=== PATIENT | female | born 1965 | race Caucasian/White ===

== ENCOUNTER 2017-06-23 14:53 | Inpatient (IN) | payer MEDICAID ==
[~2017-06-23] VITALS: Ht 160 cm; Wt 111.0 kg
[2017-06-23 15:36] LABS: BASOPHILS % (AUTO) 0.3 % (0-1); EOSINOPHILS % (AUTO) 0.1 % (0-6); HEMATOCRIT 41.9 % (35.0-45.0); HEMOGLOBIN 14.1 g/dl (12.0-16.0); LYMPHOCYTES # (AUTO) 1.5 X10'3 (1.1-4.8); LYMPHOCYTES % (AUTO) 19.5 % (21-51); MEAN CORPUSCULAR HEMOGLOBIN 27.7 PG (27.0-31.0); MEAN CORPUSCULAR HGB CONC 33.7 % (33.0-36.5); MEAN CORPUSCULAR VOLUME 82.3 FL (78-98); MEAN PLATELET VOLUME 9.4 FL (7.4-10.4); MONOCYTES # (AUTO) 0.9 X10'3 (0-0.9); MONOCYTES % (AUTO) 11.9 % (2-12); NEUTROPHILS # (AUTO) 5.2 X10'3 (1.8-7.7); NEUTROPHILS % (AUTO) 68.2 % (42-75); PLATELET COUNT 186 X10'3 (140-440); RED BLOOD COUNT 5.09 X10'6 (4.20-5.60); RED CELL DISTRIBUTION WIDTH 14.7 % (11.5-14.5); WHITE BLOOD COUNT 7.6 X10'3 (4.5-11.0)
[2017-06-23 15:46] LABS: PARTIAL THROMBOPLASTIN TIME 30 SECONDS (22-32); PROTHROMBIN TIME 10.5 SECONDS (9.0-12.0)
[2017-06-23 15:51] LABS: ALANINE AMINOTRANSFERASE 35 U/L (12-78); ALBUMIN 3.9 G/DL (3.4-5.0); ALKALINE PHOSPHATASE 76 IU/L (46-116); ANION GAP 18 (8-16); ASPARTATE AMINO TRANSFERASE 30 U/L (10-37); BILIRUBIN,TOTAL 0.3 MG/DL (0.1-1.0); BLOOD UREA NITROGEN 13 MG/DL (7-18); BUN/CREATININE RATIO 12.9 (6.6-38.0); CALCIUM 8.9 MG/DL (8.5-10.1); CHLORIDE 102 MMOL/L (99-107); CREATININE 1.01 MG/DL (0.40-0.90); GLUCOSE 176 MG/DL (70-104); POTASSIUM 3.2 MMOL/L (3.5-5.1); SODIUM 142 MMOL/L (135-145); TOTAL PROTEIN 7.8 G/DL (6.4-8.2); eGFR 57 ML/MIN
[2017-06-23] MEDS ORDERED: levoFLOXACIN-Levaquin 500mg/D5 100 ML IV ONE (16:25)
[2017-06-23] MEDS ORDERED: ipratropium/albuterol 3ml nebule NEB ONE (16:25)
[2017-06-23] MEDS: potassium 10mEq/100ml NS w/LIDOcaine (10mg/bag) IV SCH ×2 (17:47→18:35)
[2017-06-23] MEDS ORDERED: methylPREDNISolone sod succ 125mg/2ml vial IV ONE ×2 (18:05→18:30)
[2017-06-23] MEDS ORDERED: diphenhydrAMINE 50 mg/ml inj IV ONE (18:05)
[2017-06-23] MEDS ORDERED: morphine 4 MG/ML inj SYRINge IV PRN (18:30)
[2017-06-23] MEDS ORDERED: magnesium hydroxide 30ml (MOM) UD suspension PO PRN (18:30)
[2017-06-23] MEDS ORDERED: potassium Cl 20 mEq SR tablet PO PRN ×2 (18:30)
[2017-06-23] MEDS ORDERED: magnesium Cl slow-release 64mg tablet PO PRN (18:30)
[2017-06-23] MEDS ORDERED: mag hydrox/Alum hydrox/simeth 30ml oral suspension PO PRN (18:30)
[2017-06-23] MEDS ORDERED: potassium Cl 40MEQ/NS 500ml 500 ML IV PRN ×2 (18:30)
[2017-06-23] MEDS ORDERED: magnesium 2GM in 50ml NS 50 ML IV PRN (18:30)
[2017-06-23] MEDS ORDERED: magnesium 4gm in 100ml NS 100 ML IV PRN (18:30)
[2017-06-23] MEDS ORDERED: HYDROcodone/acetaminophen 10/325mg tab PO PRN (18:30)
[2017-06-23] MEDS ORDERED: HYDROcodone/acetaminophen 5mg/325mg tablet PO PRN (18:30)
[2017-06-23] MEDS ORDERED: acetaminophen 325mg tablet PO PRN (18:30)
[2017-06-23] MEDS ORDERED: ondansetron/PF 4mg/2ml inj IV PRN (18:30)
[2017-06-23] MEDS ORDERED: ipratropium/albuterol 3ml nebule NEB PRN (18:35)
[2017-06-23] MEDS ORDERED: potassium Cl 20 mEq SR tablet PO ONE (18:55)
[2017-06-23] MEDS ORDERED: METF500T PO (19:10)
[2017-06-23] MEDS ORDERED: GEMF600T3 PO (19:10)
[2017-06-23] MEDS ORDERED: BENA40TA2 PO (19:10)
[2017-06-23] MEDS: K and/or MAG REPLACEMENT MC SCH (19:17)
[2017-06-23] MEDS: CefTRIAXone/D5W-Rocephin 1gm 50 ML IV SCH (19:25)
[2017-06-23] MEDS: normal saline 1000ml 1,000 ML IV SCH (19:25)
[2017-06-23] MEDS ORDERED: heparin, porcine 5000 units/ml vial SQ SCH (20:00)
[2017-06-23] MEDS ORDERED: methylPREDNISolone sod succ 125mg/2ml vial IV SCH (21:00)
[2017-06-23] MEDS ORDERED: dextrose 50%-water 50ml dispensing syringe IV PRN ×2 (22:20)
[2017-06-23] MEDS ORDERED: dextrose ORAL solution 15 GM/59 ML bottle PO PRN ×2 (22:20)
[2017-06-23] MEDS ORDERED: glucagon, human recombinant 1mg kit SUBCUT PRN (22:20)
[2017-06-23] MEDS ORDERED: MESSAGE TO PHARMACY PO ONE (22:20)
[2017-06-23] MEDS: insulin glargine (Lantus) pen - multi-dose SQ SCH (22:34)
[2017-06-24] MEDS: normal saline 1000ml 1,000 ML IV SCH (04:27)
[2017-06-24 06:08] LABS: BASOPHILS % (AUTO) 0.1 % (0-1); EOSINOPHILS % (AUTO) 0 % (0-6); HEMATOCRIT 37.1 % (35.0-45.0); HEMOGLOBIN 12.7 g/dl (12.0-16.0); MEAN CORPUSCULAR HGB CONC 34.2 % (33.0-36.5); MEAN CORPUSCULAR VOLUME 81.8 FL (78-98); MEAN PLATELET VOLUME 9.5 FL (7.4-10.4); MONOCYTES # (AUTO) 0.3 X10'3 (0-0.9); MONOCYTES % (AUTO) 7.3 % (2-12); NEUTROPHILS # (AUTO) 2.6 X10'3 (1.8-7.7); NEUTROPHILS % (AUTO) 66.6 % (42-75); PLATELET COUNT 160 X10'3 (140-440); RED BLOOD COUNT 4.53 X10'6 (4.20-5.60); RED CELL DISTRIBUTION WIDTH 14.6 % (11.5-14.5); WHITE BLOOD COUNT 3.9 X10'3 (4.5-11.0)
[2017-06-24 06:17] LABS: PROTHROMBIN TIME 10.5 SECONDS (9.0-12.0)
[2017-06-24 06:28] LABS: ALBUMIN 3.4 G/DL (3.4-5.0); ANION GAP 14 (8-16); BLOOD UREA NITROGEN 16 MG/DL (7-18); BUN/CREATININE RATIO 15.8 (6.6-38.0); CALCIUM 8.5 MG/DL (8.5-10.1); CHLORIDE 105 MMOL/L (99-107); CREATININE 1.01 MG/DL (0.40-0.90); GLUCOSE 332 MG/DL (70-104); MAGNESIUM 1.6 MG/DL (1.5-2.4); POTASSIUM 4.1 MMOL/L (3.5-5.1); SODIUM 142 MMOL/L (135-145); TOTAL CARBON DIOXIDE 23.2 MMOL/L (24-32); eGFR 57 ML/MIN
[2017-06-24 06:31] LABS: HEMOGLOBIN A1C 8.5 % (4.5-6.2)
[2017-06-24 07:00] VITALS: BP 125/71
[2017-06-24] MEDS ORDERED: azithromycin/NS 500mg/250ml 250 ML IV SCH (08:00)
[2017-06-24] MEDS: K and/or MAG REPLACEMENT MC SCH (08:00)
[2017-06-24] MEDS: insulin Lispro (HumaLOG) vial - multi-dose SQ SCH ×4 (08:43→21:13)
[2017-06-24] MEDS: pantoprazole 40 MG vial IV SCH (08:47)
[2017-06-24] MEDS: CefTRIAXone/D5W-Rocephin 1gm 50 ML IV SCH (08:48)
[2017-06-24] MEDS: heparin, porcine 5000 units/ml vial SQ SCH ×2 (08:51→19:03)
[2017-06-24 11:00] VITALS: BP 153/62
[2017-06-24 18:00] VITALS: BP 136/69
[2017-06-24] MEDS: lactobacillus rhamnosus 10,000 MMU CELLS/CAPSULE PO SCH (19:03)
[2017-06-24] MEDS: methylPREDNISolone sod succ 125mg/2ml vial IV SCH (19:03)
[2017-06-24] MEDS: insulin glargine (Lantus) pen - multi-dose SQ SCH (21:14)
[2017-06-25] VITALS: BP 147/76
[2017-06-25 05:30] LABS: BASOPHILS % (AUTO) 0.3 % (0-1); EOSINOPHILS # (AUTO) 0.1 X10'3 (0-0.9); EOSINOPHILS % (AUTO) 0.7 % (0-6); HEMATOCRIT 37.1 % (35.0-45.0); HEMOGLOBIN 12.6 g/dl (12.0-16.0); LYMPHOCYTES # (AUTO) 1.6 X10'3 (1.1-4.8); LYMPHOCYTES % (AUTO) 22.6 % (21-51); MEAN CORPUSCULAR HEMOGLOBIN 28.1 PG (27.0-31.0); MEAN CORPUSCULAR HGB CONC 33.9 % (33.0-36.5); MEAN CORPUSCULAR VOLUME 82.7 FL (78-98); MEAN PLATELET VOLUME 9.5 FL (7.4-10.4); MONOCYTES # (AUTO) 0.6 X10'3 (0-0.9); MONOCYTES % (AUTO) 7.8 % (2-12); NEUTROPHILS % (AUTO) 68.6 % (42-75); PLATELET COUNT 200 X10'3 (140-440); RED BLOOD COUNT 4.49 X10'6 (4.20-5.60); RED CELL DISTRIBUTION WIDTH 14.3 % (11.5-14.5); WHITE BLOOD COUNT 7.3 X10'3 (4.5-11.0)
[2017-06-25 05:48] LABS: ALBUMIN 3.3 G/DL (3.4-5.0); ANION GAP 11 (8-16); BLOOD UREA NITROGEN 20 MG/DL (7-18); BUN/CREATININE RATIO 23.8 (6.6-38.0); CALCIUM 9.1 MG/DL (8.5-10.1); CHLORIDE 107 MMOL/L (99-107); CREATININE 0.84 MG/DL (0.40-0.90); GLUCOSE 215 MG/DL (70-104); MAGNESIUM 2.1 MG/DL (1.5-2.4); POTASSIUM 4.6 MMOL/L (3.5-5.1); SODIUM 144 MMOL/L (135-145); eGFR 71 ML/MIN
[2017-06-25 07:00] VITALS: BP 159/79
[2017-06-25] MEDS: methylPREDNISolone sod succ 125mg/2ml vial IV SCH (07:27)
[2017-06-25] MEDS: pantoprazole 40 MG vial IV SCH (07:28)
[2017-06-25] MEDS: heparin, porcine 5000 units/ml vial SQ SCH (07:30)
[2017-06-25] MEDS: CefTRIAXone/D5W-Rocephin 1gm 50 ML IV SCH (07:31)
[2017-06-25] MEDS: lactobacillus rhamnosus 10,000 MMU CELLS/CAPSULE PO SCH (07:35)
[2017-06-25] MEDS: K and/or MAG REPLACEMENT MC SCH (07:36)
[2017-06-25] MEDS ORDERED: ROBDML PO (08:45)
[2017-06-25] MEDS ORDERED: LEVO500T89 PO (09:04)
[2017-06-25 11:17] VITALS: BP 152/77
== END 2017-06-25 12:07 | disposition home or self-care (01) | DRG 139 ==
LOC: ER 14:53 → ED HOLD 18:27 → EDBEDREQTM 20:59 → EDBEDREQ 20:59 → MED 3N 21:30
PROVIDERS: ADMIT Internal Medicine; ATTEND Internal Medicine
DX: J18.9 Pneumonia, unspecified organism (principal); Z68.41 Body mass index [BMI] 40.0-44.9, adult; I10 Essential (primary) hypertension; E11.9 Type 2 diabetes mellitus without complications; E87.6 Hypokalemia; Z88.1 Allergy status to other antibiotic agents; Z88.5 Allergy status to narcotic agent; Z88.0 Allergy status to penicillin; Z88.2 Allergy status to sulfonamides; Z79.899 Other long term (current) drug therapy
CPT/HCPCS: 36415; 71045; 80048; 80053; 82948; 83036; 83605; 83735; 83880; 84484; 85025; 85610; 85730; 87040; 87070; 87502; 87503; 93005; 94640; 94667; 94668; 94760; 96365; 97116; 97530; 99285; A6258; C9113; J0696; J1200; J1644; J1815; J1956; J2930; J3480; J7030

== ENCOUNTER 2019-07-12 23:10 | Emergency (ER) | payer MEDICAID ==
[~2019-07-12] VITALS: Ht 160 cm; Wt 115.9 kg
[~2019-07-12 23:10] MED LIST: BENA40TA73 PO; GEMF600T89 PO; LEVO500T89 PO; METF500T PO; ROBDML PO
[2019-07-12] MEDS ORDERED: LIDOcaine 5% patch TP SCH (23:45)
--- NOTE | 2019-07-13 00:01 | NUR ---
PT STATES SHE WILL TRY LIDOCAIN PATCH ON FOOT. DR. DAIGLE OK WITH THAT. PT INSTRUCTED TO TAKE LIDOCAINE PATCH OFF IF SHE GETS REDNESS OR ITCHINESS AND WASH HER FOOT WITH SOAP AND WATER. PT ISNTRUCTED TO COME BACK TOT HE ED IF SHE DEVELOPS ANY WORSENING SYMPTOMS. PT VERBALIZES UNDERSTANDING OF ALL INSTRUCTIONS
[2019-07-13 00:02] VITALS: BP 143/73
== END 2019-07-13 00:04 | disposition home or self-care (01) ==
LOC: ER 23:10
DX: T63.2X1A Toxic effect of venom of scorpion, accidental (unintentional), initial encounter (principal); E78.00 Pure hypercholesterolemia, unspecified; I10 Essential (primary) hypertension; E11.9 Type 2 diabetes mellitus without complications; Z88.0 Allergy status to penicillin; Z88.2 Allergy status to sulfonamides; Z88.5 Allergy status to narcotic agent; Z88.8 Allergy status to other drugs, medicaments and biological substances; Z79.899 Other long term (current) drug therapy; Y92.89 Other specified places as the place of occurrence of the external cause
CPT/HCPCS: 99282; 99283

== ENCOUNTER 2021-03-24 08:06 | Inpatient (IN) | payer MEDICAID ==
[2021-03-17 14:48] LABS: BASOPHILS # (AUTO) 0.1 X10'3 (0-0.2); BASOPHILS % (AUTO) 0.5 % (0-1); EOSINOPHILS # (AUTO) 0.3 X10'3 (0-0.9); EOSINOPHILS % (AUTO) 2.2 % (0-6); LYMPHOCYTES # (AUTO) 2.5 X10'3 (1.1-4.8); LYMPHOCYTES % (AUTO) 19.1 % (21-51); MEAN CORPUSCULAR HEMOGLOBIN 25.1 PG (27.0-31.0); MEAN CORPUSCULAR HGB CONC 32.2 g/dL (33.0-36.5); MEAN CORPUSCULAR VOLUME 77.9 FL (78-98); MEAN PLATELET VOLUME 10.1 FL (7.4-10.4); MONOCYTES # (AUTO) 0.8 X10'3 (0-0.9); MONOCYTES % (AUTO) 6.4 % (2-12); NEUTROPHILS # (AUTO) 9.5 X10'3 (1.8-7.7); NEUTROPHILS % (AUTO) 71.8 % (42-75); PRE OP HEMATOCRIT 41.2 % (35.0-45.0); PRE OP HEMOGLOBIN 13.3 g/dL (12.0-16.0); PRE OP PLATELET COUNT 160 X10'3 (140-440); RED BLOOD COUNT 5.29 X10'6 (4.20-5.60); RED CELL DISTRIBUTION WIDTH 15.3 % (11.5-14.5)
[2021-03-17 14:56] LABS: HEMOGLOBIN A1C 8.2 % (4.5-6.2)
[2021-03-17 15:15] LABS: ALBUMIN 4.2 G/DL (3.4-5.0); ALBUMIN/GLOBULIN RATIO 1.2 (1.1-1.5); ALKALINE PHOSPHATASE 91 IU/L (46-116); BLOOD UREA NITROGEN 19 MG/DL (7-18); BUN/CREATININE RATIO 24.1 (6.6-38.0); CALCIUM 9.4 MG/DL (8.5-10.1); CHLORIDE 103 MMOL/L (99-107); CREATININE 0.79 MG/DL (0.40-0.90); PRE OP ALT 36 U/L (30-65); PRE OP ANION GAP 11 (8-16); PRE OP AST 18 U/L (10-37); PRE OP BILIRUB, TOTAL 0.4 MG/DL (0.0-1.0); PRE OP GLUCOSE 130 MG/DL (70-104); PRE OP POTASSIUM 4.3 MMOL/L (3.4-5.1); PRE OP SODIUM 142 MMOL/L (135-145); TOTAL CARBON DIOXIDE 27.7 MMOL/L (24-32); TOTAL PROTEIN 7.8 G/DL (6.4-8.2); eGFR 75 ML/MIN
[2021-03-24] VITALS (19 sets, daily range): BP systolic 134–155; BP diastolic 59–80
[~2021-03-24] VITALS: Ht 160 cm; Wt 107.7 kg
[~2021-03-24 08:06] MED LIST changes: +AMLO5TAB16 PO; -BENA40TA73 PO; +ERTU5TAB PO; -GEMF600T89 PO; +GUAI600T45 PO; +INSU100I65 SQ; -LEVO500T89 PO; +LEVO5TAB13 PO; +LISI20TA28 PO; -ROBDML PO; +ROSU20TA2 PO; +clindamycin-Cleocin 900mg/D5W 50 ML IV ONE; +famotidine 20mg tablet PO ONE; +gentamicin inj 375 MG in normal saline 100ml IV soln 90.625 ML IV ONE; +ringers solution, lacted 1,000 ML IV SCH
[2021-03-24] MEDS ORDERED: LIDOcaine 1% 30ml preserv. free vial ONE (10:48)
[2021-03-24] MEDS ORDERED: BUPIVAcaine/PF 2.5 mg/ml (0.25%) 30ml vial ONE (10:48)
[2021-03-24] MEDS ORDERED: meperidine/PF 25mg/ml syringe IV PRN ×3 (11:10)
[2021-03-24] MEDS ORDERED: ondansetron/PF 4mg/2ml inj IV PRN (11:10)
[2021-03-24] MEDS ORDERED: ringers solution, lacted 1,000 ML IV SCH (11:10)
[2021-03-24] MEDS ORDERED: morphine 2 MG/ML inj. syringe IV PRN (11:10)
[2021-03-24] MEDS ORDERED: morphine 4 MG/ML inj SYRINge IV PRN (11:10)
[2021-03-24] MEDS ORDERED: proCHLORperazine 10 MG/2 ml inj IV PRN (11:10)
[2021-03-24] MEDS ORDERED: sevoflurane 250ml liquid IH ONE (11:52)
[2021-03-24] MEDS ORDERED: rocuronium 10mg/ml inj IV ONE ×2 (11:52→11:56)
[2021-03-24] MEDS ORDERED: midazolam 1 mg/ML 2ml injection ONE (11:56)
[2021-03-24] MEDS ORDERED: fentaNYL/PF 50MCG/1 ML 2ML syringe ONE ×2 (11:56→13:46)
[2021-03-24] MEDS ORDERED: propofol inj 20 ML IV ONE (11:57)
[2021-03-24] MEDS ORDERED: INDOCYANINE GREEN 25 MG/10 ML VIAL IV ONE (13:44)
[2021-03-24] MEDS ORDERED: neostigmine methylsulfate 1 MG/ML 10ml vial ONE (15:21)
[2021-03-24] MEDS ORDERED: glycopyrrolate 0.2mg/ml inj ONE (15:21)
[2021-03-24] MEDS ORDERED: dexamethasone sod phosphate 4mg/ml inj. ONE (15:22)
[2021-03-24] MEDS ORDERED: ondansetron/PF 4mg/2ml inj ONE (15:22)
--- NOTE | 2021-03-24 15:34 | NUR ---
Received from OR via , accompanied by Anesthesiologist DR GARCIA and report given by Anesthesiolgist.AWAKENS TO VOICE. VITALS STABLE. DRESSINGS DI. JHONNY PAIN. ABD SOFT.
[2021-03-24] MEDS ORDERED: glucagon, human recombinant 1mg kit SUBCUT PRN (16:20)
[2021-03-24] MEDS ORDERED: HYDROcodone/acetaminophen 5mg/325mg tablet PO PRN (16:20)
[2021-03-24] MEDS ORDERED: MESSAGE TO PHARMACY PO ONE (16:20)
[2021-03-24] MEDS: ketorolac trometh. 30mg/ml inj. IV SCH ×2 (16:20→23:40)
[2021-03-24] MEDS ORDERED: dextrose ORAL solution 15 GM/59 ML bottle PO PRN ×2 (16:20)
[2021-03-24] MEDS: ringers solution, lacted 1,000 ML IV SCH ×2 (16:20→22:52)
[2021-03-24] MEDS ORDERED: dextrose 50%-water 50ml dispensing syringe IV PRN ×2 (16:20)
--- NOTE | 2021-03-24 17:14 | NUR ---
Report called to receiving nurse. Transferred via BED Belongings . Special Issues communicated to receiving nurse.AWAKE And oriented. vitals stable. dressings di. carl pain. to surgical rm 346b at this time.
--- NOTE | 2021-03-24 17:30 | NUR ---
Pt brought to floor. Placed on post op VS. VSS at this point. Pt. 93% on 4 LPM via n/c. She is awake and alert sipping CL. Ice chips and pain medications provided. Pt's parents here visiting. Pt. oriented to room. Call light within reach.
--- NOTE | 2021-03-24 18:30 | NUR ---
Gave report to Luann SANCHEZ.
[2021-03-24] MEDS: atorvastatin 20mg tablet PO SCH (20:24)
[2021-03-24] MEDS: acetaminophen 325mg tablet PO SCH (20:24)
[2021-03-24] MEDS: insulin glargine (Lantus) pen - multi-dose SQ SCH (20:35)
[2021-03-25] VITALS: BP 151/67
[2021-03-25] MEDS: acetaminophen 325mg tablet PO SCH ×4 (02:00→19:24)
[2021-03-25 05:00] VITALS: BP 140/63
[2021-03-25] MEDS: ringers solution, lacted 1,000 ML IV SCH ×3 (05:10→17:08)
[2021-03-25 06:14] LABS: BASOPHILS % (AUTO) 0.1 % (0-1); EOSINOPHILS % (AUTO) 0 % (0-6); HEMATOCRIT 38.1 % (35.0-45.0); HEMOGLOBIN 12.3 g/dl (12.0-16.0); LYMPHOCYTES # (AUTO) 1.2 X10'3 (1.1-4.8); MEAN CORPUSCULAR HGB CONC 32.4 g/dL (33.0-36.5); MEAN CORPUSCULAR VOLUME 77.2 FL (78-98); MEAN PLATELET VOLUME 10.4 FL (7.4-10.4); MONOCYTES # (AUTO) 1.2 X10'3 (0-0.9); MONOCYTES % (AUTO) 5.8 % (2-12); NEUTROPHILS # (AUTO) 17.7 X10'3 (1.8-7.7); NEUTROPHILS % (AUTO) 88.1 % (42-75); PLATELET COUNT 159 X10'3 (140-440); RED BLOOD COUNT 4.94 X10'6 (4.20-5.60); RED CELL DISTRIBUTION WIDTH 15.3 % (11.5-14.5); WHITE BLOOD COUNT 20.1 X10'3 (4.5-11.0)
[2021-03-25 06:19] LABS: ALBUMIN 3.4 G/DL (3.4-5.0); ANION GAP 12 (8-16); BLOOD UREA NITROGEN 17 MG/DL (7-18); BUN/CREATININE RATIO 18.9 (6.6-38.0); CALCIUM 8.8 MG/DL (8.5-10.1); CHLORIDE 102 MMOL/L (99-107); GLUCOSE 184 MG/DL (70-104); SODIUM 137 MMOL/L (135-145); eGFR 65 ML/MIN
--- NOTE | 2021-03-25 06:48 | NUR ---
Problems reprioritized. Patient report given, questions answered & plan of care reviewed with DANIEL David.
[2021-03-25 07:20] VITALS: BP 129/57
[2021-03-25] MEDS: loratadine 10mg tablet PO SCH (09:25)
[2021-03-25] MEDS: amLODIPine 5mg tablet PO SCH (09:26)
[2021-03-25] MEDS: lisinopril 20mg tablet PO SCH (09:26)
[2021-03-25] MEDS: ketorolac trometh. 30mg/ml inj. IV SCH ×3 (09:27→23:43)
[2021-03-25] MEDS: enoxaparin 40mg/0.4ml syringe SQ SCH (09:28)
[2021-03-25] MEDS: insulin Lispro (HumaLOG) vial - multi-dose SQ SCH ×2 (09:37→19:27)
[2021-03-25 11:00] VITALS: BP 127/45
--- NOTE | 2021-03-25 11:22 | NUR ---
Diabetes consult: Noted A1C 8.2 similar to previous admit in 2018 A1C 8.3 Pt declined verbal ed at this time, written DM ed w/ RD contact info placed in pt chart. Addendum: 03/25/21 at [address] Amended: Links added.
[2021-03-25 18:00] VITALS: BP 133/52
--- NOTE | 2021-03-25 18:23 | NUR ---
Problems reprioritized. Patient report given, questions answered & plan of care reviewed with DANIEL Sanford.
--- NOTE | 2021-03-25 18:28 | NUR ---
Patient in room [facility] 346. I have received report from KACY SANCHEZ and had the opportunity to ask questions and assume patient care.
[2021-03-25] MEDS: atorvastatin 20mg tablet PO SCH (21:24)
[2021-03-25] MEDS: insulin glargine (Lantus) pen - multi-dose SQ SCH (21:27)
[2021-03-26] VITALS: BP 110/55
[2021-03-26] MEDS: acetaminophen 325mg tablet PO SCH ×3 (02:00→13:36)
[2021-03-26] MEDS: ringers solution, lacted 1,000 ML IV SCH (02:58)
[2021-03-26 06:17] LABS: BASOPHILS % (AUTO) 0.3 % (0-1); EOSINOPHILS # (AUTO) 0.2 X10'3 (0-0.9); EOSINOPHILS % (AUTO) 1.7 % (0-6); HEMATOCRIT 35.9 % (35.0-45.0); HEMOGLOBIN 11.6 g/dl (12.0-16.0); LYMPHOCYTES % (AUTO) 14.6 % (21-51); MEAN CORPUSCULAR HEMOGLOBIN 25.3 PG (27.0-31.0); MEAN CORPUSCULAR HGB CONC 32.3 g/dL (33.0-36.5); MEAN CORPUSCULAR VOLUME 78.3 FL (78-98); MEAN PLATELET VOLUME 10.8 FL (7.4-10.4); MONOCYTES # (AUTO) 0.9 X10'3 (0-0.9); MONOCYTES % (AUTO) 6.8 % (2-12); NEUTROPHILS # (AUTO) 10.3 X10'3 (1.8-7.7); NEUTROPHILS % (AUTO) 76.6 % (42-75); PLATELET COUNT 136 X10'3 (140-440); RED BLOOD COUNT 4.58 X10'6 (4.20-5.60); RED CELL DISTRIBUTION WIDTH 15.3 % (11.5-14.5); WHITE BLOOD COUNT 13.5 X10'3 (4.5-11.0)
--- NOTE | 2021-03-26 06:20 | NUR ---
Problems reprioritized. Patient report given, questions answered & plan of care reviewed with KACY SANCHEZ.
[2021-03-26 06:26] LABS: ANION GAP 7 (8-16); BLOOD UREA NITROGEN 15 MG/DL (7-18); BUN/CREATININE RATIO 21.4 (6.6-38.0); CALCIUM 8.7 MG/DL (8.5-10.1); CHLORIDE 108 MMOL/L (99-107); GLUCOSE 136 MG/DL (70-104); SODIUM 141 MMOL/L (135-145); eGFR 87 ML/MIN
[2021-03-26 07:10] VITALS: BP 117/52
[2021-03-26] MEDS: ketorolac trometh. 30mg/ml inj. IV SCH (07:21)
[2021-03-26] MEDS: loratadine 10mg tablet PO SCH (07:21)
[2021-03-26] MEDS: amLODIPine 5mg tablet PO SCH (07:23)
[2021-03-26] MEDS: lisinopril 20mg tablet PO SCH (07:23)
[2021-03-26] MEDS: enoxaparin 40mg/0.4ml syringe SQ SCH (07:23)
[2021-03-26 09:12] LABS: PLATELET ESTIMATE DECREASED
[2021-03-26 09:13] LABS: MICROCYTOSIS 1+
[2021-03-26] MEDS: insulin Lispro (HumaLOG) vial - multi-dose SQ SCH ×2 (09:21→13:34)
[2021-03-26 12:00] VITALS: BP 117/53
[2021-03-26] MEDS ORDERED: ibuprofen tablet 400 MG TABLET PO PRN (14:00)
[2021-03-26] MEDS ORDERED: IBUP-1984 PO (14:52)
--- NOTE | 2021-03-26 15:38 | NUR ---
patient stable and appropriate for discharge home with mother and father. IV removed, all belongings taken from room. [facility] [place]. All discharge instructions and education given and reviewed with patient, all questions answered.
== END 2021-03-26 16:08 | disposition home or self-care (01) | DRG 231 ==
LOC: PAS IN 08:06 → SUR 3N 17:30
PROVIDERS: ADMIT Surgery; ATTEND Surgery
PROC: 8E0W4CZ Robotic Assisted Procedure of Trunk Region, Percutaneous Endoscopic Approach (ICD-10-PCS; 2021-03-24)
PROC: B4151ZZ Fluoroscopy of Inferior Mesenteric Artery using Low Osmolar Contrast (ICD-10-PCS; 2021-03-24)
PROC: B4141ZZ Fluoroscopy of Superior Mesenteric Artery using Low Osmolar Contrast (ICD-10-PCS; 2021-03-24)
PROC: 0DTF4ZZ Resection of Right Large Intestine, Percutaneous Endoscopic Approach (ICD-10-PCS; principal; 2021-03-24 11:52)
DX: C19 Malignant neoplasm of rectosigmoid junction (principal); E11.9 Type 2 diabetes mellitus without complications; E78.5 Hyperlipidemia, unspecified; I10 Essential (primary) hypertension; E66.9 Obesity, unspecified; Z79.84 Long term (current) use of oral hypoglycemic drugs; Z68.41 Body mass index [BMI] 40.0-44.9, adult; Z88.0 Allergy status to penicillin; Z88.8 Allergy status to other drugs, medicaments and biological substances; Z88.5 Allergy status to narcotic agent; Z79.899 Other long term (current) drug therapy; Z79.4 Long term (current) use of insulin
CPT/HCPCS: 36415; 80048; 80053; 82948; 83036; 85008; 85025; 87081; 93005; A4215; A4618; C1758; G0378; J1100; J1650; J1815; J1885; J2250; J2405; J2704; J2710; J3010; J3490; J7120; U0003; U0005

== ENCOUNTER 2021-04-17 10:44 | Day surgery (SDC) | payer MEDICAID ==
[~2021-04-17] VITALS: Ht 160 cm; Wt 108.6 kg
[~2021-04-17 10:44] MED LIST changes: +IBUP-1984 PO; -clindamycin-Cleocin 900mg/D5W 50 ML IV ONE; -famotidine 20mg tablet PO ONE; -gentamicin inj 375 MG in normal saline 100ml IV soln 90.625 ML IV ONE; -ringers solution, lacted 1,000 ML IV SCH
[2021-04-17] MEDS ORDERED: normal saline 1000ml 1,000 ML IV SCH (11:10)
[2021-04-17 11:30] VITALS: BP 143/58
[2021-04-17] MEDS ORDERED: CYAN25003 SL (11:30)
[2021-04-17] MEDS ORDERED: OMEG-79 PO (11:30)
[2021-04-17] MEDS ORDERED: Cinsulin (11:30)
[2021-04-17] MEDS ORDERED: MULT-1166 PO (11:31)
[2021-04-17] MEDS ORDERED: epiNEPHrine 0.1mg/ml 10ml syringe ONE (13:43)
[2021-04-17] MEDS ORDERED: diphenhydrAMINE 50 mg/ml inj ONE (13:48)
[2021-04-17] MEDS ORDERED: midazolam 1 mg/ML 2ml injection ONE ×2 (13:50→14:20)
[2021-04-17] MEDS ORDERED: fentaNYL/PF 50MCG/1 ML 2ML syringe ONE (13:50)
[2021-04-17] MEDS ORDERED: heparin sodium, porcine/PF 100unit/ml 5ML syringe ONE (13:50)
[2021-04-17 14:45] VITALS: BP 133/56
[2021-04-17 15:00] VITALS: BP 155/45
[2021-04-17 15:15] VITALS: BP 148/53
[2021-04-17 15:30] VITALS: BP 139/57
[2021-04-17 15:45] VITALS: BP 145/58
== END 2021-04-17 16:15 | disposition home or self-care (01) ==
LOC: SSTAY O 10:44
PROVIDERS: ATTEND Preventive Medicine Aerospace Medicine
DX: C18.2 Malignant neoplasm of ascending colon (principal); Z20.822 Contact with and (suspected) exposure to COVID-19; Z79.899 Other long term (current) drug therapy
CPT/HCPCS: 36561; 76937; 77001; 82948; 87635; 99152; 99153; C1769; C1788; C1894; C9803; J0171; J1200; J1642; J2250; J3010

== ENCOUNTER 2021-05-27 08:16 | Day surgery (SDC) | payer MEDICAID ==
[2021-05-27] VITALS (13 sets, daily range): BP systolic 111–159; BP diastolic 57–85
[~2021-05-27] VITALS: Ht 160 cm; Wt 102.4 kg
[~2021-05-27 08:16] MED LIST changes: +CYAN25003 SL; +Cinsulin; +MULT-1166 PO; +OMEG-79 PO
[2021-05-27] MEDS ORDERED: normal saline 1000ml 1,000 ML IV PRN (08:40)
[2021-05-27] MEDS ORDERED: phentolamine (Regitine) 5mg inj IV ONE (09:13)
[2021-05-27] MEDS ORDERED: CYAN-50 PO (09:15)
[2021-05-27] MEDS ORDERED: [UNRECOGNIZED DRUG - OTHER] PO (09:15)
[2021-05-27] MEDS ORDERED: GUAI600T45 PO (09:15)
[2021-05-27] MEDS ORDERED: LEVO5TAB29 PO (09:15)
[2021-05-27] MEDS ORDERED: CHOL400T57 PO (09:15)
[2021-05-27] MEDS ORDERED: IBUP-1984 PO (09:17)
[2021-05-27] MEDS ORDERED: fentaNYL/PF 50MCG/1 ML 2ML syringe ONE (09:34)
[2021-05-27] MEDS ORDERED: midazolam 1 mg/ML 2ml injection ONE (09:34)
[2021-05-27] MEDS ORDERED: diphenhydrAMINE 50 mg/ml inj ONE (09:36)
== END 2021-05-27 12:25 | disposition home or self-care (01) ==
LOC: SSTAY O 08:16
PROVIDERS: ATTEND Preventive Medicine Aerospace Medicine
DX: R19.09 Other intra-abdominal and pelvic swelling, mass and lump (principal); D35.01 Benign neoplasm of right adrenal gland; C18.2 Malignant neoplasm of ascending colon; E11.9 Type 2 diabetes mellitus without complications; I10 Essential (primary) hypertension; Z79.899 Other long term (current) drug therapy; Z79.4 Long term (current) use of insulin; Z88.0 Allergy status to penicillin; Z88.1 Allergy status to other antibiotic agents; Z88.2 Allergy status to sulfonamides; Z88.8 Allergy status to other drugs, medicaments and biological substances
CPT/HCPCS: 49180; 77012; 82948; 99152; 99153; J1200; J2250; J3010

== ENCOUNTER 2021-07-22 10:42 | Day surgery (SDC) | payer MEDICAID ==
[~2021-07-22] VITALS: Ht 160 cm; Wt 100.0 kg
[2021-07-22] VITALS (13 sets, daily range): BP systolic 118–146; BP diastolic 50–75
[~2021-07-22 10:42] MED LIST changes: +CHOL400T57 PO; +CYAN-50 PO; -LEVO5TAB13 PO; +LEVO5TAB29 PO; +[UNRECOGNIZED DRUG - OTHER] PO
[2021-07-22] MEDS ORDERED: normal saline 1000ml 1,000 ML IV PRN (11:35)
[2021-07-22] MEDS ORDERED: ACET-1025 PO (12:05)
[2021-07-22] MEDS ORDERED: diphenhydrAMINE 50 mg/ml inj ONE (12:33)
[2021-07-22 12:35] LABS: BASOPHILS % (AUTO) 0.2 % (0-1); EOSINOPHILS # (AUTO) 0.1 X10'3 (0-0.9); EOSINOPHILS % (AUTO) 0.7 % (0-6); HEMATOCRIT 35.5 % (35.0-45.0); HEMOGLOBIN 11.5 g/dl (12.0-16.0); LYMPHOCYTES # (AUTO) 1.2 X10'3 (1.1-4.8); LYMPHOCYTES % (AUTO) 10.6 % (21-51); MEAN CORPUSCULAR HEMOGLOBIN 26.8 PG (27.0-31.0); MEAN CORPUSCULAR HGB CONC 32.3 g/dL (33.0-36.5); MEAN PLATELET VOLUME 9.3 FL (7.4-10.4); MONOCYTES # (AUTO) 0.9 X10'3 (0-0.9); MONOCYTES % (AUTO) 7.3 % (2-12); NEUTROPHILS # (AUTO) 9.6 X10'3 (1.8-7.7); NEUTROPHILS % (AUTO) 81.2 % (42-75); RED BLOOD COUNT 4.28 X10'6 (4.20-5.60); RED CELL DISTRIBUTION WIDTH 21.5 % (11.5-14.5); WHITE BLOOD COUNT 11.8 X10'3 (4.5-11.0)
[2021-07-22] MEDS ORDERED: midazolam 1 mg/ML 2ml injection ONE (12:39)
[2021-07-22] MEDS ORDERED: fentaNYL/PF 50MCG/1 ML 2ML syringe ONE (12:39)
[2021-07-22 12:46] LABS: ANION GAP 13 (8-16); BILIRUBIN,TOTAL 0.3 MG/DL (0.1-1.0); BLOOD UREA NITROGEN 16 MG/DL (7-18); BUN/CREATININE RATIO 27.1 (6.6-38.0); CALCIUM 8.8 MG/DL (8.5-10.1); CHLORIDE 111 MMOL/L (99-107); CREATININE 0.59 MG/DL (0.40-0.90); GLUCOSE 109 MG/DL (70-104); POTASSIUM 3.6 MMOL/L (3.5-5.1); SODIUM 147 MMOL/L (135-145); TOTAL CARBON DIOXIDE 22.8 MMOL/L (24-32); TOTAL PROTEIN 7.3 G/DL (6.4-8.2); eGFR > 90 ML/MIN
[2021-07-22 12:47] LABS: ALANINE AMINOTRANSFERASE 23 U/L (12-78); ALBUMIN 3.4 G/DL (3.4-5.0); ALBUMIN/GLOBULIN RATIO 0.9 (1.1-1.5); ALKALINE PHOSPHATASE 217 IU/L (46-116); ASPARTATE AMINO TRANSFERASE 24 U/L (10-37)
[2021-07-22 12:54] LABS: PLATELET COUNT 47 X10'3 (140-440)
[2021-07-22 12:55] LABS: ANISOCYTOSIS 3+; PLATELET ESTIMATE DECREASED; TEAR DROP CELLS FEW
[2021-07-22 12:56] LABS: ELLIPTOCYTES FEW
[2021-07-22 12:59] LABS: GIANT PLATELET FEW
[2021-07-22] MEDS ORDERED: clindamycin 600mg/D5W 50ml 50 ML IV ONE (13:05)
== END 2021-07-22 15:20 | disposition home or self-care (01) ==
LOC: SSTAY O 10:42
PROVIDERS: ATTEND Radiology Vascular & Interventional Radiology
DX: M89.8X8 Other specified disorders of bone, other site (principal); C18.2 Malignant neoplasm of ascending colon; Z79.899 Other long term (current) drug therapy
CPT/HCPCS: 20220; 36415; 77012; 80053; 82948; 85025; 99152; 99153; J1200; J2250; J3010; J3490; J7030; 20225; 85008

== ENCOUNTER 2024-12-17 10:38 | Emergency (ER) | payer MEDICAID ==
[~2024-12-17 10:38] MED LIST changes: +ACET-1025 PO; -CYAN-50 PO; -IBUP-1984 PO
== END 2024-12-17 16:51 | disposition left against medical advice (07) ==
LOC: ER 10:38
DX: J00 Acute nasopharyngitis [common cold] (principal); Z88.8 Allergy status to other drugs, medicaments and biological substances; Z88.4 Allergy status to anesthetic agent; Z53.21 Procedure and treatment not carried out due to patient leaving prior to being seen by health care provider